=== PATIENT | female | born 1960 | race Asian ===

== ENCOUNTER 2018-09-26 23:44 | Emergency (ER) | payer BC ==
[~2018-09-26] VITALS: Ht 162.6 cm; Wt 65.8 kg
[2018-09-26 23:50] VITALS: BP_SYST 145
[2018-09-27] MEDS ORDERED: IPRATROPIUM/ALBUTEROL SULFATE 3 ML AMPUL.NEB (DUONEB) INH ONE (01:15)
[2018-09-27] MEDS ORDERED: LIDOCAINE 1%, 20 ML MDV 20 ML ONE (01:59)
[2018-09-27] MEDS ORDERED: methylPREDNISolone SOD SUCC/PF 62.5 MG/ML VIAL IM ONE (02:00)
[2018-09-27] MEDS ORDERED: cefTRIAXone 1 GM VIAL IM ONE (02:00)
[2018-09-27] MEDS ORDERED: MORPHINE 2 MG/ML INJ. SYRINGE IM ONE (02:15)
[2018-09-27] MEDS ORDERED: ACETAMINOPHEN 325 MG TABLET PO ONE (02:30)
[2018-09-27] MEDS ORDERED: LEVOFLOXACIN 500 MG TABLET PO ONE (02:30)
[2018-09-27 03:00] LABS: BILIRUBIN,URINE NEGATIVE (NEGATIVE); BLOOD, URINE NEGATIVE (NEGATIVE); CLARITY/URINE CLEAR (CLEAR); COLOR,URINE YELLOW (YELLOW); GLUCOSE,URINE NEGATIVE (NEGATIVE); KETONES,URINE NEGATIVE (NEGATIVE); LEUKOCYTE ESTERASE ,URINE NEGATIVE (NEGATIVE); NITRITE, URINE NEGATIVE (NEGATIVE); PH,URINE 6.5 (5.0-8.0); PROTEIN URINE NEGATIVE (NEGATIVE); UROBILINOGEN,URINE 0.2 (0.2-1.0)
[2018-09-27] MEDS ORDERED: guaiFENesin/DEXTROMETHORPHAN 10 ML UDC PO ONE (04:30)
[2018-09-27 05:09] VITALS: BP_SYST 134
== END 2018-09-27 05:09 | disposition home or self-care (01) ==
LOC: SED 23:44
DX: J18.9 Pneumonia, unspecified organism (principal); J44.9 Chronic obstructive pulmonary disease, unspecified; E78.00 Pure hypercholesterolemia, unspecified; F17.210 Nicotine dependence, cigarettes, uncomplicated; R03.0 Elevated blood-pressure reading, without diagnosis of hypertension; Z71.6 Tobacco abuse counseling; Z90.89 Acquired absence of other organs
CPT/HCPCS: 71045; 81003; 87070; 87205; 96372; 99285; J0696; J2001; J2930; J7620; 94640; J2270